=== PATIENT | female | born 1980 | race Caucasian/White ===

== ENCOUNTER 2020-06-04 18:51 | Emergency (ER) | payer OTHER, SELFPAY ==
--- NOTE | ~2020-06-04 | XR_ITS ---
XR chest 1V portable DATE: 06/04/2020 20:12 INDICATION: Cough, sore throat, body aches, headache TECHNIQUE: Portable upright AP chest on 06/04/2020 at 2014 hours COMPARISON: None FINDINGS: Normal heart size. No hilar or mediastinal enlargement. No pulmonary infiltrate or consolidation, pleural effusion or pulmonary vascular congestion or pneumo thorax is detected. IMPRESSION: No active cardiopulmonary disease Reviewed, dictated and finalized at location A. [employer]
[2020-06-04 19:12] VITALS: BP 150/112; PULSE 122; RESP 15; TEMP 37.8; O2SAT 96
--- NOTE | 2020-06-04 20:09 | ED.GENADULT ---
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 HEAD: Normocephalic, atraumatic. EYES: PERRLA and EOMI. ENT: Nares clear, no rhinorrhea or epistaxis. Mucous membranes moist. Oropharynx without tonsillar hypertrophy exudate or other lesions. Bilateral TMs pearly cota nonbulging NECK: Supple. No adenopathy or masses. CHEST: Clear to auscultation. No respiratory distress. No wheezes rales or rhonchi HEART: Regular rate and rhythm. No murmur heard. EXTREMITIES: Normal range of motion. No edema. SKIN: Warm, dry, no rash. NEURO: No focal deficits. Alert and oriented x3. PSYCH: Normal mood and affect. Course Course Emergency Course: Patient in the room in no distress will be treated and tested for COVID-19 provided with primary care follow-up instructed the primary care doctor on-call is who will be responsible for giving her her results she will need to facilitate setting this up patient felt appropriate for outpatient reevaluation nontoxic-appearing without emesis provided with reasons to return Vital Signs Vital signs: Vital Signs Temperature 100.0 F H 06/04/20 19:12 Pulse Rate 122 H 06/04/20 19:12 Respiratory Rate 15 06/04/20 19:12 Blood Pressure 150/112 H 06/04/20 19:12 Pulse Oximetry 96 06/04/20 19:12 Temperature 100.0 F H 06/04/20 19:12 Pulse Rate 122 H 06/04/20 19:12 Respiratory Rate 15 06/04/20 19:12 Blood Pressure 150/112 H 06/04/20 19:12 Pulse Oximetry 96 06/04/20 19:12 Medical Decision Making MDM Narrative Medical decision making narrative: Patient will be tested and treated for COVID-19 as the likely etiology of her symptoms provided with primary care follow-up given reasons to return will be treated symptomatically advised to self quarantine Vital Signs Vital Signs: Vital Signs Temperature 100.0 F H 06/04/20 19:12 Pulse Rate 122 H 06/04/20 19:12 Respiratory Rate 15 06/04/20 19:12 Blood Pressure 150/112 H 06/04/20 19:12 Pulse Oximetry 96 06/04/20 19:12 Temperature 100.0 F H 06/04/20 19:12 Pulse Rate 122 H 06/04/20 19:12 Respiratory Rate 15 06/04/20 19:12 Blood Pressure 150/112 H 06/04/20 19:12 Pulse Oximetry 96 06/04/20 19:12 Lab Data Labs: Strep Screen Presumptive Negative *(Reference Range: Negative)* Discharge Plan Discharge Clinical Impression: Acute upper respiratory infection Patient Disposition: Home, Self-Care Condition: Stable Instructions: Antibiotic Form, COVID-19 (Coronavirus Disease 2019) (ED) Additional Instructions: Follow up with your primary care provider within 1-2 days to set up for reevaluation in your COVID-19 results. Go to ER for shortness of breath, difficulty breathing, chest pain, fever/chills, weakness, nauseau/vomitting, etc. or any other concerns. Self quarantine until you have received your COVID-19 results and been advised otherwise by primary care Take any prescribed medications as directe
[2020-06-04] MEDS: ACETAMINOPHEN 500 MG TABLET 1000 MG PO (20:46)
[2020-06-04 22:29] VITALS: BP 138/95; PULSE 94; RESP 16; TEMP 36.8; O2SAT 100
[2020-06-05 14:53] LABS: SARS-CoV-2 RNA PCR Negative
== END 2020-06-04 22:30 | disposition home or self-care (01) ==
LOC: ANHED 20:30
PROVIDERS: Emergency Medicine Emergency Medical Services; Emergency Provider Emergency Medicine
DX: J06.9 Acute upper respiratory infection, unspecified (principal); Z20.828 Contact with and (suspected) exposure to other viral communicable diseases
CPT/HCPCS: 71045; 87081; 87147; 87635; 87880; 99283; A9270; C9803; U0003

== ENCOUNTER 2022-04-03 08:31 | Outpatient (CLI) | payer OTHER, SELFPAY ==
--- NOTE | 2022-04-03 | EST_ITS ---
Patient Info Name: Corrie Reyes Age: 41 years : 1980 Gender: Female Ht: 65 in Wt: 280 lbs BSA: 2.49 m2 HR: 60 bpm BP: 121 / 72 mmHg Heart Rhythm: Sinus Rhythm Exam Date: 04/03/2022 9:07 AM Exam Location: [facility] Stress Patient Status: Outpatient Admit Date: 04/03/2022 Staff Ordering Physician: SebastienPiedad Attending Provider: Piedad Sesay Exercise Technologist: Janey Hawk CT Nurse: RUSSELL RO Exam Type: CA stress test treadmill Study Info A treadmill exercise stress test was performed. Summary 1. Abnormal ST segment depression consistent with myocardial ischemia. 2. Below average exercise capacity for age. 3. Markedly hypertensive blood pressure response to exercise. Protocol: [facility] Stress ECG Details Stage: REST Duration (min): 2 min : 16 sec Speed (mph): 0.0 Grade (%): 0 HR (bpm): 60 SBP (mmHg): 121 DBP (mmHg): 72 METS: --- Stage: REST Duration (min): 7 min : 34 sec Speed (mph): 0.0 Grade (%): 0 HR (bpm): 61 SBP (mmHg): 121 DBP (mmHg): 72 METS: --- Stage: STAGE 1 Duration (min): 1 min : 0 sec Speed (mph): 1.7 Grade (%): 10 HR (bpm): 107 SBP (mmHg): 121 DBP (mmHg): 72 METS: --- Stage: STAGE 1 Duration (min): 2 min : 0 sec Speed (mph): 1.7 Grade (%): 10 HR (bpm): 122 SBP (mmHg): 121 DBP (mmHg): 72 METS: --- Stage: STAGE 1 Duration (min): 3 min : 0 sec Speed (mph): 1.7 Grade (%): 10 HR (bpm): 124 SBP (mmHg): 121 DBP (mmHg): 72 METS: --- Stage: STAGE 2 Duration (min): 1 min : 0 sec Speed (mph): 2.5 Grade (%): 12 HR (bpm): --- SBP (mmHg): 121 DBP (mmHg): 72 METS: --- Stage: STAGE 2 Duration (min): 1 min : 24 sec Speed (mph): 2.5 Grade (%): 12 HR (bpm): 150 SBP (mmHg): 121 DBP (mmHg): 72 METS: --- Stage: RECOVERY Duration (min): 0 min : 35 sec Speed (mph): 0.0 Grade (%): 0 HR (bpm): --- SBP (mmHg): 121 DBP (mmHg): 72 METS: --- Stage: RECOVERY Duration (min): 1 min : 35 sec Speed (mph): 0.0 Grade (%): 0 HR (bpm): 115 SBP (mmHg): 121 DBP (mmHg): 72 METS: --- Stage: RECOVERY Duration (min): 2 min : 35 sec Speed (mph): 0.0 Grade (%): 0 HR (bpm): 93 SBP (mmHg): 236 DBP (mmHg): 81 METS: --- Stage: RECOVERY Duration (min): 3 min : 35 sec Speed (mph): 0.0 Grade (%): 0 HR (bpm): 88 SBP (mmHg): 236 DBP (mmHg): 81 METS: --- Stage: RECOVERY Duration (min): 4 min : 35 sec Speed (mph): 0.0 Grade (%): 0 HR (bpm): 92 SBP (mmHg): 236 DBP (mmHg): 81 METS: --- Stage: RECOVERY Duration (min): 5 min : 33 sec Speed (mph): 0.0 Grade (%): 0 HR (bpm): 84 SBP (mmHg): 109 DBP (mmHg): 56 METS: --- Rest HR: 61 bpm Peak HR:
== END 2022-04-03 08:32 | disposition home or self-care (01) ==
PROVIDERS: PCP Physician Assistant; Visit Provider Physician Assistant
DX: Z82.49 Family history of ischemic heart disease and other diseases of the circulatory system (principal); R94.39 Abnormal result of other cardiovascular function study
CPT/HCPCS: 93017

== ENCOUNTER 2022-04-03 11:04 | Emergency (ER) | payer OTHER, SELFPAY ==
[2022-04-03] VITALS (23 sets, daily range): BP systolic 109–149; BP diastolic 72–109; PULSE 61–84; RESP 13–19; TEMP 36.8; O2SAT 97–99
--- NOTE | ~2022-04-03 | XR_ITS ---
EXAMINATION: XR chest 2V DATE: 04/03/2022 12:19 INDICATION: Chest pain. TECHNIQUE: Frontal and lateral views of the chest were obtained. COMPARISON: Chest 2 view 06/04/2020 FINDINGS: The chest demonstrates clear lungs without pneumonia, pleural effusion, or pneumothorax. Th e heart size is normal. IMPRESSION: 1. No acute cardiopulmonary disease. Reviewed, dictated and finalized at location A.
--- NOTE | 2022-04-03 11:07 | ECG_ITS ---
Measurements Intervals [place] Rate: 58 P: 48 GA: 175 QRS: 33 QRSD: 88 T: 23 QT: 388 QTc: 382 Interpretive Statements SINUS BRADYCARDIA LOW QRS VOLTAGE IN PRECORDIAL LEADS BORDERLINE ECG NO PREVIOUS ECG AVAILABLE FOR COMPARISON Electronically Signed On 04-03-2022 11:29:35 CDT by Tre Saldana D.O.
[2022-04-03 11:28] LABS: Basophils Percent Auto 0.3 % (0.2-1.2); Eosinophils Absolute Auto 0.2 K/mm3 (0-0.3); Eosinophils Percent Auto 3.1 % (0-4.4); Hematocrit 44.7 % (37.0-47.0); Hemoglobin 14.3 g/dL (12.0-15.0); Immature Granulocyte Absolute 0.03 K/mm3 (0.00-0.031); Immature Granulocyte Percent A 0.5 % (0-0.5); Lymphocytes Absolute Auto 2.68 K/mm3 (0.9-3.2); Mean Corpuscular Hemoglobin 27.8 pg (26-34); Mean Platelet Volume 11.5 fl (7.4-10.4); Monocytes Absolute Auto 0.5 K/mm3 (0.1-0.6); Neutrophils Absolute Auto 2.9 K/mm3 (1.3-6.7); Neutrophils Percent Auto 46.1 % (45.5-73.1); Platelet Count Result 250 k/mm3 (150-375); Red Blood Count 5.14 M/mm3 (4.2-5.4); Red Cell Distribution Width 13.2 % (11.5-14.5); White Blood Count 6.4 K/mm3 (4.5-10.0)
[2022-04-03 11:36] LABS: Alanine Aminotransferase 35 U/L (6-35); Albumin Level 4.4 g/dL (3.5-5.1); Alkaline Phosphatase 123 U/L (38-126); Anion Gap 13 mmol/L (8-16); Aspartate Amino Transferase 32 U/L (14-36); Bilirubin,Total 0.7 mg/dL (0.2-1.3); Blood Urea Nitrogen 12 mg/dL (7-17); Calcium 8.5 mg/dL (8.4-10.2); Carbon Dioxide 22 mmol/L (22-30); Chloride 106 mmol/L (98-107); Estimated CRCL calculation 110 ml/min; Estimated Glomerular Filt Rate > 60; Glucose 99 mg/dL (65-110); Lipase 60 U/L (23-300); Potassium 4.1 mmol/L (3.4-5.0); Sodium 141 mmol/L (137-145)
[2022-04-03 11:40] LABS: Partial Thromboplastin Time 28.5 SECONDS (22.3-36.8); Prothrombin Time 12.9 Seconds (11.1-14.7)
[2022-04-03 11:48] LABS: Troponin I < 0.012 ng/mL (0.000-0.034)
[2022-04-03] MEDS: ASPIRIN 81 MG CHEWABLE TABLET 324 MG PO (12:39)
--- NOTE | 2022-04-03 13:35 | ED.GENADULT ---
HPI - General Adult General Chief complaint: Chest Pain Stated complaint: chest pain Time Seen by Provider: 04/03/22 11:49 History of Present Illness HPI narrative: 41-year-old female presented to the emergency department for evaluation of intermittent chest pain. Patient is being worked up for chest pain by her primary care physician. Patient was having an outpatient stress test today when they had to stop due to patient having hypertension. Patient states that she was not having any chest pain and did not feel excessively tired during the stress test but it was stopped due to her blood pressure. Patient was observed longer and her blood pressure improved. While patient was going home she did develop some right-sided chest pain. Upon arrival to emergency room patient states that her chest pain is resolved. Patient states he does still have some mild right-sided chest pressure but denies any pain. Patient does report lower extremity edema and calf tenderness. Patient denies any prior history of PE or DVT. Related Data Allergies Allergy/AdvReac Type Severity Reaction Status Date / Time nitrofurantoin Allergy Rash Verified 04/03/22 11:33 [From Macrobid] Review of Systems Review of Systems: CONSTITUTIONAL: Denies fever, chills, or sweats. EYES: Denies visual changes, redness, or discharge. ENT: Denies rhinorrhea, congestion, sore throat, or otalgia. CARDIOVASCULAR: See HPI RESPIRATORY: Denies cough or dyspnea. GASTROINTESTINAL: Denies abdominal pain, nausea, vomiting, or diarrhea. GENITOURINARY: Denies dysuria or hematuria. SKIN: Denies rash or itching. MUSCULOSKELETAL: Denies back pain, joint pain, or myalgia. NEUROLOGIC: Denies headache, numbness, or weakness. [facility] Social History Social History (Updated 06/04/20 @ 20:13 by Jaiden Bruner, OZZIE) Smoking status: Never smoker Gender identity (if verbalized by the patient): Female Exam Narrative: APPEARANCE: Well appearing, no pain, no distress, well-nourished. HEAD: normocephalic, atraumatic. EYES: PERRLA/EOMI, conjunctivae clear. NOSE: Normal no drainage EARS:TMS clear with good light reflex. THROAT: Pharynx clear, no exudate. NECK: Supple. No adenopathy, no masses. RESPIRATORY: Airway patent, respirations nonlabored. Clear to auscultation bilaterally, no rales, rhonchi, wheezing. CARDIOVASCULAR: Regular rate and rhythm without murmurs rubs or gallops. ABDOMINAL: Soft, nontender, nondistended, normal bowel sounds MUSCULOSKELETAL: Moves all extremities. Strength/ROM intact, No edema, No calf tenderness. NEURO: Alert. Cranial nerves II through XII intact. Grossly intact SKIN: Warm, dry. Normal Color Course Course Emergency Course: Patient's EKG showed no evidence of acute STEMI. His x-ray showed no acute cardiopulmonary normality. Patient had negative serial troponins and a negative D-dimer. Patient's blood pressure did improve while in the emergency department. Patient was after the results of her work-up. All questions concerns were addressed. Vital Signs Vital signs: Vital Signs Temperature 98.3 F 04/03/22 11:20 Pulse Rate 76 04/03/22 11:20 Respiratory Rate 18 04/03/22 11:20 Blood Pressure 130/76 04/03/22 11:20 Pulse Oximetry 99 04/03/22 11:20 Oxygen Delivery Room Air 04/03/22 11:20 Temperature 98.3 F 04/03/22 11:20 Pulse Rate 76 04/03/22 15:35 Respiratory Rate 15 04/03/22 15:35 Blood Pressure 117/82 04/03/22 15:35 Pulse Oximetry 99 04/03/22 15:35 Oxygen Delivery Room Air 04/03/22 11:29 Medical Decision Making Vital Signs Vital Signs: Vital Signs Temperature 98.3 F 04/03/22 11:20 Pulse Rate 76 04/03/22 11:20 Respiratory Rate 18 04/03/22 11:20 Blood Pressure 130/76 04/03/22 11:20 Pulse Oximetry 99 04/03/22 11:20 Oxygen Delivery Room Air 04/03/22 11:20 Temperature 98.3 F 04/03/22 11:20 Pulse Rate 76 04/03/22 15:35 Respiratory Rate 15 04/03/22 15:35 B
[2022-04-03 14:58] LABS: Troponin I < 0.012 ng/mL (0.000-0.034)
== END 2022-04-03 15:37 | disposition home or self-care (01) ==
PROVIDERS: Emergency Provider Emergency Medicine; PCP Physician Assistant
DX: R07.9 Chest pain, unspecified (principal); I10 Essential (primary) hypertension; R00.1 Bradycardia, unspecified
CPT/HCPCS: 36415; 71046; 80053; 81025; 83690; 84484; 85025; 85380; 85610; 85730; 93005; 93017; 99284; A9270